=== PATIENT | female | born 1940 | race Caucasian/White ===

== ENCOUNTER 2025-02-19 10:00 | Outpatient (RCR) | payer MEDICARE, BC, SELFPAY | END 2025-06-19 23:59 | disposition home or self-care (01) | PROVIDERS: PCP Family Medicine; Visit Provider Family Medicine | DX: R39.15 Urgency of urination (principal); G89.29 Other chronic pain; M25.561 Pain in right knee; M25.562 Pain in left knee; Z51.89 Encounter for other specified aftercare | CPT/HCPCS: 97110; 97112; 97116; 97161; 97530; 97535 ==